=== PATIENT | male | born 1950 | race Caucasian/White ===

== ENCOUNTER → 2023-01-26 09:39 | Outpatient (CLI) | payer MEDICARE, SELFPAY ==
--- NOTE | 2023-01-26 23:39 | DI.NM.S_ITS ---
DATE OF SERVICE: 01/26/2023 PROCEDURE PERFORMED: Exercise treadmill stress and rest myocardial perfusion imaging with gating to assess ejection fraction and regional wall motion. ORDERING PROVIDER: Morris Gupta M.D. INDICATIONS: The patient is a 72-year-old hypertensive, hyperlipidemic male with a very high coronary artery calcium score. CARDIAC STRESS: The patient was able to exercise for 6 minutes, 1 second on a standard [facility] protocol, suggesting average exercise capacity with an CATA of 0%, although may have been able to go further but was limited by balance and cognitive issues. He had a blunted heart rate response to exercise, achieving a maximum of 117 BPM (80% of his predicted maximum), but a normal blood pressure response. He had no chest discomfort or other anginal symptoms. His resting ECG was normal and there were no significant ST-segment shifts or arrhythmias with stress except occasional isolated PACs in recovery. At 5 minutes of exercise, at a heart rate of 112 BPM, 26.1 millicuries of technetium-99m Myoview was injected and he was imaged 20 minutes later using a gated SPECT acquisition protocol. Earlier in the day while at rest, he had been injected with 11.1 millicuries of technetium- 99m Myoview and was imaged 15 minutes later, again using a gated SPECT acquisition protocol. FINDINGS: 1. Raw data: There is fairly good myocardial tracer uptake but with some evidence for diaphragmatic attenuation. The lung/heart ratio is normal at 0.25 with a normal TID ratio of 0.97. 2. Quantitative gated SPECT: Post-stress ejection fraction is 74% without any focal wall motion abnormality, and specifically the inferior wall has normal contractility. The resting ejection fraction is also 74% with a normal resting end-diastolic volume of 119 mL. 3. Myocardial perfusion imaging: Post-stress supine images show a fairly normal myocardial perfusion pattern with only a very subtle defect in the inferior and inferoseptal segments, consistent with diaphragmatic attenuation, supported by its resolution on the prone images, revealing a normal, homogeneous perfusion pattern. There are no other perfusion defects. The resting images show an identical perfusion pattern to that of the stress images without any areas of improvement. IMPRESSION: 1. Normal myocardial perfusion study although with slightly reduced sensitivity because of a mildly blunted heart rate response to exercise. 2. Mild, fixed inferior perfusion defect that resolves on prone imaging, consistent with diaphragmatic attenuation artifact. There is no compelling evidence for myocardial ischemia or previous myocardial infarction. 3. Normal left ventricular size and function without any focal wall motion abnormality. 4. Average exercise capacity although may have been able to go longer except limited by balance issues, and had no angina or ECG changes of ischemia and only rare isolated PACs in recovery. Joel Higgins - [facility]/RASHAAD doc#: [id number]/job#: [id number] dd: 01/26/2023 16:03:00 dt: 01/26/2023 23:25:00 DICTATING MD/COPIES TO: Mitchell Thurman MD; Morris Gupta M.D. COPIES MNE: MAYCOL;
== END ==
PROVIDERS: Referring Provider Family Medicine; Visit Provider Family Medicine
DX: I25.10 Atherosclerotic heart disease of native coronary artery without angina pectoris (principal); I10 Essential (primary) hypertension; E78.5 Hyperlipidemia, unspecified
CPT/HCPCS: 78452; 93017; A9502